=== PATIENT | male | born 1965 | race Caucasian/White ===

== ENCOUNTER 2020-02-16 01:11 | Emergency (ER) | payer MEDICAID, OTHER ==
[~2020-02-16] VITALS: Ht 167.6 cm; Wt 133.4 kg
[~2020-02-16 01:11] MED LIST: NONE PER PT; [UNRECOGNIZED DRUG - REMARK]
[2020-02-16] MEDS ORDERED: OXYMETAZOLINE NASAL SPRAY 0.05%, 15ML NAS ONE (01:30)
[2020-02-16] MEDS ORDERED: OXYMETAZOLINE NASAL SPRAY 0.05%,30ML ONE (01:53)
[2020-02-16] MEDS ORDERED: NITROGLYCERIN OINT 2%, 1GM TP ONE (02:00)
[2020-02-16] MEDS ORDERED: LABETALOL 5MG/ML, 20ML IVPush PRN (02:00)
--- NOTE | 2020-02-16 02:23 | NUR ---
PTS NOSE CLAMPED. MD USED AFR[facility]. OTHER ORDERS DC'D BECAUSE BP IMPROVED. WILL CONTINUE TO MONITOR.
[2020-02-16 03:10] VITALS: BP 158/102
--- NOTE | 2020-02-16 03:27 | NUR ---
Patient given discharge instructions and they have confirmed that they understand the instructions. Patient ambulatory with steady gait.
== END 2020-02-16 03:31 | disposition home or self-care (01) ==
LOC: ED 03:00
DX: R04.0 Epistaxis (principal); I10 Essential (primary) hypertension
CPT/HCPCS: 99282